=== PATIENT | male | born 1960 | race Caucasian/White ===

== ENCOUNTER 2020-10-31 16:07 | Emergency (ER) | payer OTHER, SELFPAY ==
[2020-10-31] VITALS (7 sets, daily range): BP systolic 128–219; BP diastolic 94–123; PULSE 65–647; RESP 14–26; TEMP 30–32.6; O2SAT 98–100; BMI 20.5
[2020-10-31] MEDS: Etomidate 20 MG/10 ML Vial 14 MG IV (16:25)
[2020-10-31] MEDS: Rocuronium Bromide 50 MG/5 ML Vial IV ×2 (16:26→16:28)
[2020-10-31] MEDS: Etomidate 20 MG/10 ML Vial 10 MG IV (16:27)
--- NOTE | 2020-10-31 16:31 | CT_ITS ---
We are attempting to reach an attending provider to discuss findings. An addendum with communication details will be sent when the communication is complete. STUDY: CT ABDOMEN AND PELVIS WITH CONTRAST REASON FOR EXAM: Male, 60 years old. FALL. PT UNRESPONSIVE RADIATION DOSAGE (If Supplied By Facility): CTDIvol = ( 20.57 ) mGy, DLP = ( 2076.29 ) mGycm TECHNIQUE: Transaxial images were obtained from the dome of the diaphragm to the symphysis pubis without oral contrast. 100ML OF ISOVUE 370 was administered. Sagittal and coronal images were reconstructed. Individualized dose optimization techniques were used for this CT. COMPARISON: None. FINDINGS: There is atelectasis within the dependent portion of the lungs.. The visualized portions of the heart are within normal limits. Nonspecific fatty infiltration of the liver without mass or bile duct dilatation. Normal gallbladder and extrahepatic biliary system. Multiple tiny calcified granulomata within the spleen. Normal pancreas. Normal bilateral adrenal glands. Normal right kidney. Normal left kidney. Normal visualized stomach. Normal small intestine. Mild diverticular changes of colon without evidence for acute diverticulitis.. The appendix is visualized and appears normal. Normal abdominal aorta. Normal inferior vena cava. Normal retroperitoneum. Nonspecific diffuse distention of the bladder. COHN catheter is noted however the balloon appears to be blown up within the penile bulb or at the junction of the base of the penis and prostate and should be repositioned. Normal abdominal wall. Lumbar spine demonstrates mild spondylosis.. CT/Abdomen/Pelvis W IV Cont ONLY IMPRESSION: Malpositioned COHN catheter which should be removed and reinserted. Nonspecific fatty infiltration of liver. Minor diverticular disease of colon without evidence for acute epididymitis. Electronically Signed: James Hawkins MD at 18:17 EST , Service support ,
--- NOTE | 2020-10-31 16:31 | EKG12_ITS ---
Test Reason : UNRESPONSIVE Blood Pressure : / mmHG Vent. Rate : 121 BPM Atrial Rate : 121 BPM P-R Int : 154 ms QRS Dur : 098 ms QT Int : 332 ms P-R-T Axes : 062 001 078 degrees QTc Int : 471 ms Sinus tachycardia Possible Biatrial enlargement Nonspecific ST abnormality Abnormal ECG Confirmed by CHRISTOPHER CHÁVEZ, LORELEI ([id number]), purchasing expeditor DOLLY VILLEDA ([id number]) on 11/02/2020 8:19:44 AM Referred By: ELVIA Confirmed By:LORELEI WHITE MD
[2020-10-31] MEDS: 0.9% Normal Saline 1,000 ML 1000 ML IV (16:38)
--- NOTE | 2020-10-31 17:00 | CT_ITS ---
We are attempting to reach an attending provider to discuss findings. An addendum with communication details will be sent when the communication is complete. STUDY: CT BRAIN WITHOUT CONTRAST REASON FOR EXAM: Male, 60 years old. FALL. PT UNRESPONSIVE RADIATION DOSAGE (If Supplied By Facility): CTDIvol = ( 20.57 ) mGy, DLP = ( 2076.29 ) mGycm TECHNIQUE: Transaxial CT imaging of the brain was performed without administration of intravenous contrast material. Individualized dose optimization techniques were used for this CT. COMPARISON: No relevant priors. FINDINGS: Normal soft tissue structures. Normal calvarium. There is central atrophy and severe nonspecific periventricular white matter hypoattenuation.. Normal basal ganglia and thalami. Normal brainstem. Normal cerebellum. There is diffuse subarachnoid and intraventricular hemorrhage and findings suggestive of early evolving hydrocephalus.. There are also very small bilateral acute subdural hematomas. There are no findings of an acute ischemic infarction. Postsurgical changes of the orbits There is mucosal thickening of the right maxillary bilateral ethmoid sphenoid and frontal sinuses CT/Brain/Head without Contrast IMPRESSION: Acute subarachnoid, intraventricular and small bilateral subdural hematomas with findings suggestive of evolving obstructive hydrocephalus. Clinical correlation is recommended Electronically Signed: James Hawkins MD at 18:04 EST , Service support ,
[2020-10-31 17:06] LABS: Absolute Lymphocyte Count 0.43 X10^3/uL (0.83-4.51); Absolute Neutrophil Count 8.2 X10^3/uL (2.0-7.7); Basophil# 0.03 X10^3/uL; Basophil% 0.3 % (0-1); Hematocrit 49.3 % (40-54); Hemoglobin 16.5 g/dL (13.0-16.5); Lymphocyte # 0.43 X10^3/ul (4.0); Lymphocyte % 4.6 % (19-41); Mean Corp Hgb Conc 33.5 g/dL (32-36); Mean Corpuscular Volume 89.6 fL (80-94); Mean Platelet Vol. 8.7 fl (6.2-12.0); Monocyte# 0.67 X10^3/uL; Monocyte% 7.2 % (0-10); NRBC Flagged by Analyzer 0 % (0-5); Neutrophil # 8.17 X10^3/uL (2.7-7.7); Neutrophil % 87.8 % (47-70); POSITIVE DIFFERENTIAL YES; Platelet Count 312 K/mm3 (150-450); RBC Distribution Width CV 11.9 % (11.6-14.6); RBC Distribution Width SD 39.1 fl (35.1-43.9); White Blood Count 9.3 K/mm3 (4.4-11.0)
--- NOTE | 2020-10-31 17:11 | ED.VIS.INJ ---
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 Coworker went to his residence. Found him on the ground unresponsive. Tetanus Immunization: Unknown Prior similar symptoms: No Recent Illness/Hospitalization: No - Past Medical History (1) History of hemophilia A Status: Acute Past Medical History - Allergies and Home Meds Allergies/Adverse Reactions: Allergies Unable to Assess Allergy (Verified 10/31/20 16:21) Prior records reviewed: Yes - Hemophilia, COPD, prior upper GI bleed Surgical History: - Lives: Alone Smoking Status: Current every day smoker Alcohol: None - Unknown Drugs: - - Unknown Review of Systems ROS: Unable to Obtain Physical Exam Vital Signs/Narrative: Vital Signs Temp Pulse Resp BP Pulse Ox 10/31/20 17:01 115 H 14 100 10/31/20 16:32 110 H 26 H 219/114 H 100 10/31/20 16:31 90.2 F L 10/31/20 16:16 86 F L 647 H 22 H 128/94 H 98 10/31/20 16:09 86.0 F L 65 22 H 128/94 H 98 Inital Vital Signs reviewed: Yes General: Cachectic. Negative for: Well developed Head: Trauma Eyes: Perrl, EOMI. Negative for: Pale conjunctiva, Scleral icterus ENT: No hemotympanum or drainage, Nasal trauma, Nasal septal hematoma Neck: - - Unable to determine Cardiovascular: Regular rate Respiratory: - - Audible stridor and wheezing Abdomen: Soft, Nontender, Nondistended, Hypoactive bowel sounds. Negative for: Hepatomegaly, Splenomegaly Back: - - Bruises noted Extremeties: Multiple bruises both upper and lower extremities Skin: Trauma - Also venous stasis dermatitis versus bruising Neurological: Cranial nerves II-XII grossly intact. Negative for: Alert, Oriented x3 Psychological: - - Able to determine - Glascow Coma Scale Eye Opening: None Motor: Withdraws to Pain Verbal: Inappropriate Coma Scale Total: 8 Diagnostic/Tx/Re-eval T of the head reveals a subarachnoid hemorrhage with intraventricular blood and ventricular dilatation. Since patient has hemophilia pharmacy was called to order factor VIII. Will administer all the Factor VIII we have available. Also will administer DDAVP as an acceptable substitute for factor VIII since that is available is insufficient. Patient was orotracheally debated. He initially received 10 mg of etomidate and 50 mg rocuronium. Was not sedated appropriately nor was he chemically paralyzed. Was determined IV left upper extremity infiltrated. He received 10 mg of etomidate and an additional 50 mg of rocuronium. He was orotracheally intubated using glide scope first attempt. 7.5 Greek endotracheal tube was placed without difficulty. Good color change on the capnometer. Breath sounds are noted bilaterally. OG was placed per nursing staff and revealed upper GI bleed. Judge reveals gross hematuria. He subsequently developed epistaxis right greater than left. Patient had posterior Rhino Rocket's placed right and left. Prior to and placement of the left Rhino Rocket the septal hematoma was incised with release of blood. Patient received 80 mg Protonix IV push and infusion. CT of the head reveals a subarachnoid hemorrhage with intraventricular blood. In light of this he also received TXA. Patient was accepted by Dr. Lombardo at [facility]. Helicopter service was contacted. C-spine per my review reveals no obvious fracture, subluxation or dislocation. There is degenerative changes noted. The abdominal portion reveals distention of the bladder in spite of Judge and significant mount of fluid in the stomach. There is no evidence of pneumoperitoneum or hemoperitoneum. CT of the chest has not been developed at the time of this dictation. - EKG Initial EKG Interpretation: Sinus Tachycardia - Sinus tachycardia with a ventricular rate of 121. MS interval is 154 ms. QRS duration 98 ms. QT duration 332 ms. [place] is normal. There is ST depression in inferior leads with ST elevation in aVR which may indicate acute ischemic changes. There is also nonspecific changes noted in the lateral l Procedures Procedure(s): 1. Oral tracheal intubation by RSI. 2. Posterior nasal pack, Rhino Rocket right and left. 3. Incision and drainage nasal septal hematoma left side. 4. Right external jugular line per physician. 5. Orogastric tube per nursing staff. 6. Judge per nursing staff. 7. Bear hugger Disposition: Transfer Transferred to: [facility] Critical care time (excluding procedures): 30-74 minutes - Critical care time 45 minutes. 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
[2020-10-31 17:12] LABS: Differential Indicated SCAN CRITERIA MET
[2020-10-31 17:17] LABS: AST(SGOT) 41 U/L (15-37); Alanine Aminotransfer ALT/SGPT 44 U/L (16-61); Albumin, Serum 3.8 g/dL (3.2-5.0); Alkaline Phosphatase 36 U/L (45-117); Anion Gap 11 (5-15); BUN 12 mg/dL (7-18); BUN/Creat Ratio 12.8 RATIO (10-20); Chloride 100 mmol/L (98-107); Creatinine, Serum 0.94 mg/dL (0.70-1.30); EST Glomerular Filtration Rate 88 mL/min (>60); Est Glom Filt Rate - Afr Amer 106 mL/min (>60); Estimated Creatinine Clearance 77.79 ml/min; Glucose 126 mg/dL (74-106); Lipase 137 U/L (73-393); Potassium 3.9 mmol/L (3.5-5.1); Protein, Total 7.8 g/dL (6.4-8.2); Sodium Level 139 mmol/L (136-145)
--- NOTE | 2020-10-31 17:17 | CT_ITS ---
STUDY: CT CERVICAL SPINE WITHOUT CONTRAST REASON FOR EXAM: Male, 60 years old. FALL. PT UNRESPONSIVE RADIATION DOSAGE (If Supplied By Facility): CTDIvol = ( 20.57 ) mGy, DLP = ( 2076.29 ) mGycm TECHNIQUE: High resolution transaxial imaging was performed without contrast material. Sagittal and coronal images were reconstructed. Individualized dose optimization techniques were used for this CT. COMPARISON: None FINDINGS: Normal craniovertebral junction. Normal anterior atlantoaxial articulation. Normal odontoid process. Decreased cervical lordosis. Normal vertebral bodies and posterior osseous elements. C2-3: Normal endplates. Normal disc height and morphology. Normal central canal and intervertebral neuroforamina. C3-4: Narrowed disc space and minor endplate spurring.. Normal central canal and intervertebral neuroforamina. C4-5: Narrowed disc space and minor endplate spurring.. Normal central canal and intervertebral neuroforamina. C5-6: Narrowed disc space and mild endplate spurring.. Normal central canal and intervertebral neuroforamina. C6-7: Narrowed disc space and mild endplate spurring.. Normal central canal and intervertebral neuroforamina. C7-T1: Normal endplates. Normal disc height and morphology. Normal central canal and intervertebral neuroforamina. Normal visualized soft tissue structures. CT/Spine Cervical without Contras IMPRESSION: No evidence for acute fracture or subluxation.. Moderate spondylosis Electronically Signed: James Hawkins MD at 18:03 EST , Service support ,
--- NOTE | 2020-10-31 17:20 | CT_ITS ---
STUDY: CT CHEST WITH CONTRAST REASON FOR EXAM: Male, 60 years old. FALL. PT UNRESPONSIVE RADIATION DOSAGE (If Supplied By Facility): CTDIvol = ( 20.57 ) mGy, DLP = ( 2076.29 ) mGycm TECHNIQUE: Transaxial imaging was performed following intravenous administration of 100ML OF ISOVUE 370. Individualized dose optimization techniques were used for this CT. COMPARISON: None. FINDINGS: There is atelectasis within the dependent portion of the lungs bilaterally slightly more pronounced on the right.. There is no demonstrated pleural abnormality. Endotracheal and nasogastric tubes are noted. Normal heart and pericardium. Normal mediastinum. Normal hilar regions. Normal enhanced pulmonary arteries. Normal aorta arch and descending thoracic aorta. Normal osseous structures. Nonspecific fatty infiltration of the liver.. CT/Chest WITH Contrast IMPRESSION: Atelectasis within the dependent portion of the lungs bilaterally slightly more advanced on the right. Electronically Signed: James Hawkins MD at 18:09 EST , Service support ,
[2020-10-31 17:21] LABS: Allen Test Positive; Base Excess -2 mmol/L (-2 to +2); Bicarbonate 23.5 mmol/L (22-26); Blood Gas Specimen Type ART; FI02 40; Mode AC; O2 Delivery Device Adult Vent; PEEP 5; PO2 102 mmHG (75-100); RR 14; SITE L Radial; SO2 98 % (95-99); Total Carbon Dioxide 25 mmol/L; Vt 450; pCO2 39.2 mmHg (35-45); pH 7.39 (7.35-7.45)
[2020-10-31 17:33] LABS: CPK Total, Creatine Kinase 1142 U/L (39-308)
[2020-10-31 17:39] LABS: Differential Comment SCANNED
[2020-10-31 17:40] LABS: Lactic Acid 5.1 mmol/L (0.4-1.9)
[2020-10-31 17:47] LABS: Partial Thromboplast Time 23.9 Seconds (24.1-36.2); Prothrombin Time (Protime)PT. 13.1 SECONDS (11.7-14.9)
--- NOTE | 2020-10-31 17:47 | CM.ED ---
SOCIAL WORK Reason for Consult: Support Patient intubated and being transferred to [facility]. Co-worker, Cathy Cardenas ([phone]) who found patient in home is at bedside. Cathy provided ER with contact number for patient's aunt, Samaria ( ). Samaria was contacted by this worker and updated on patient's critical status and transfer to [facility]. Samaria reports patient does have a brother who resides in [place]. Samaria [facility] will contact her son to obtain brother's number. Samaria requests call from patient's co-worker, Cathy to obtain additional information. Cathy updated and in agreement to follow up with patient's family. Emotional support provided throughout. Plan: Transfer to [facility] MAYNOR Vyas, PEANUT GRADER
[2020-10-31 18:06] LABS: Probe Check PASS; Specimen Processing Control PASS
[2020-10-31 20:54] LABS: Reflex Lactate? Y
== END 2020-10-31 18:42 | disposition short-term general hospital (02) ==
PROVIDERS: Emergency Provider Emergency Medicine
DX: S06.5X9A Traumatic subdural hemorrhage with loss of consciousness of unspecified duration, initial encounter (principal); I16.1 Hypertensive emergency; D66 Hereditary factor VIII deficiency; S00.33XA Contusion of nose, initial encounter; S02.2XXA Fracture of nasal bones, initial encounter for closed fracture; X58.XXXA Exposure to other specified factors, initial encounter; Y93.9 Activity, unspecified; Y92.9 Unspecified place or not applicable; K92.2 Gastrointestinal hemorrhage, unspecified; T68.XXXA Hypothermia, initial encounter; I24.8 Other forms of acute ischemic heart disease; J44.9 Chronic obstructive pulmonary disease, unspecified; Z87.19 Personal history of other diseases of the digestive system; F17.200 Nicotine dependence, unspecified, uncomplicated
CPT/HCPCS: 30020; 30905; 10060; 31500; 36600; 51702; 70450; 71260; 72125; 74177; 80053; 82550; 82803; 83605; 83690; 84484; 85025; 85610; 85730; 87040; 87635; 93005; 94002; 96365; 96368; 96375; 99251; 99285; J7030; J7050; Q9967; A4216; G0463; J2597; J3010; J3490; J7187; U0002